=== PATIENT | female | born 1980 | race Two or more races ===

== ENCOUNTER 2017-05-27 08:59 | Outpatient (CLI) | payer OTHER ==
[~2017-05-27 08:59] MED LIST: HYDROCORTISONE10 MG; MOTRIN800 MG PO; ORPH100T PO; PRILOSEC2.5 MG
== END 2017-05-27 13:57 | disposition home or self-care (01) ==
LOC: MRI 08:59
DX: D35.2 Benign neoplasm of pituitary gland (principal)
CPT/HCPCS: 70553

== ENCOUNTER 2017-09-24 15:17 | Emergency (ER) | payer OTHER ==
[~2017-09-24] VITALS: Ht 165.1 cm; Wt 115.2 kg
== END 2017-09-24 19:46 | disposition home or self-care (01) ==
LOC: ER 15:17
DX: S60.052A Contusion of left little finger without damage to nail, initial encounter (principal); M20.012 Mallet finger of left finger(s); W22.8XXA Striking against or struck by other objects, initial encounter; Y93.89 Activity, other specified; Y92.26 Movie house or cinema as the place of occurrence of the external cause; Y99.8 Other external cause status

== ENCOUNTER 2018-01-05 09:34 | Outpatient (CLI) | payer OTHER | END 2018-01-05 14:58 | disposition home or self-care (01) | LOC: MRI 09:34 | DX: D35.2 Benign neoplasm of pituitary gland (principal) | CPT/HCPCS: 70553 ==

== ENCOUNTER → 2018-01-05 | Outpatient (CLI) | payer OTHER | END | disposition home or self-care (01) | LOC: RAD 13:24 | DX: R05 Cough (principal) ==